=== PATIENT | female | born 1965 | race Caucasian/White ===

== ENCOUNTER 2020-06-01 15:33 | Emergency (ER) | payer BC, SELFPAY ==
[~2020-06-01] VITALS: Ht 175.3 cm; Wt 84.4 kg
[2020-06-01 15:51] VITALS: BP_SYST 124
[2020-06-01] MEDS ORDERED: KETOROLAC TROMETHAMINE 60 MG/2 ML VIAL IM ONE (16:45)
[2020-06-01 17:25] VITALS: BP_SYST 124
== END 2020-06-01 17:15 | disposition home or self-care (01) ==
LOC: SED 15:33
DX: S33.5XXA Sprain of ligaments of lumbar spine, initial encounter (principal); Z90.710 Acquired absence of both cervix and uterus; X50.1XXA Overexertion from prolonged static or awkward postures, initial encounter; Y93.01 Activity, walking, marching and hiking; Y92.89 Other specified places as the place of occurrence of the external cause; Y99.8 Other external cause status
CPT/HCPCS: 71045; 96372; 99283; J1885; J7030